=== PATIENT | female | born 1985 | race Two or more races ===

== ENCOUNTER 2017-08-21 11:38 | Inpatient (IN) | payer BC ==
[~2017-08-21] VITALS: Ht 167.6 cm; Wt 122.9 kg
--- NOTE | 2017-08-21 13:00 | NUR ---
PT CAME IN WITH PROGRESSIVE GENERALIZED WEAKNESS AND SLURRED SPEECH. WAS CURRENTLY IN ANOTHER ER. VSS. SEEN BY PA FOR EVAL. SAFETY AND COMFORT MEASURES PROVIDED. WILL MONITOR.
[2017-08-21 13:15] LABS: APPEARANCE,URINE Clear (CLEAR); BILIRUBIN,URINE Negative (NEGATIVE); BLOOD, URINE Negative Ery/uL (NEGATIVE); COLOR,URINE Yellow (YELLOW); KETONES,URINE 15 (NEGATIVE); LEUKOCYTE ESTERASE ,URINE Negative (NEGATIVE); NITRITE, URINE Negative (NEGATIVE); PH,URINE 7.5 (5.0-8.0); PROTEIN,URINE Negative (NEGATIVE); UGLUCOSE Negative (NEGATIVE); UROBILINOGEN,URINE 0.2 EU/dL (0.2)
[2017-08-21 13:18] LABS: BASOPHILS # (AUTO) 0.1 /CMM (0.0-0.2); BASOPHILS % (AUTO) 0.5 % (0.0-2.0); EOSINOPHILS % (AUTO) 0.1 % (0.0-6.0); HEMATOCRIT 37 % (33-45); HEMOGLOBIN 12.4 g/dL (11.5-14.8); LYMPHOCYTES # (AUTO) 1.6 /CMM (0.8-4.8); LYMPHOCYTES % (AUTO) 16.2 % (20.0-44.0); MEAN CORPUSCULAR HEMOGLOBIN 30 PG (26.0-33.0); MEAN CORPUSCULAR HGB CONC 34 g/dl (31.0-36.0); MEAN CORPUSCULAR VOLUME 89 fL (82-100); MONOCYTES # (AUTO) 0.4 /CMM (0.1-1.30); MONOCYTES % (AUTO) 4.4 % (2.0-12.0); NEUTROPHILS # (AUTO) 7.8 /CMM (1.8-8.9); NEUTROPHILS % (AUTO) 78.8 % (43.0-81.0); PLATELET COUNT (AUTO) 281 /CMM (150-450); RDW COEFFICIENT OF VARIATION 14.9 (11.5-15.0); RED BLOOD CELL COUNT(AUTO) 4.18 MIL/uL (4.0-5.2); WHITE BLOOD COUNT (AUTO) 9.9 K/uL (4.3-11.0)
[2017-08-21 13:30] LABS: ALBUMIN 3.8 g/dL (3.4-5.0); BILIRUBIN,DIRECT 0.1 mg/dL (0.0-0.2); BILIRUBIN,TOTAL 0.5 mg/dL (0.2-1.0); CALCIUM, SERUM 9.1 mg/dL (8.5-10.1); CREATININE 0.9 mg/dL (0.6-1.3); POTASSIUM 5.2 mmol/L (3.5-5.1); TOTAL PROTEIN, SERUM 8.1 g/dL (6.4-8.2)
--- NOTE | 2017-08-21 13:40 | NUR ---
IV ACCESS STARTED. BLOOD DRAWN FOR LABS.
--- NOTE | 2017-08-21 13:49 | NUR ---
CALLED DR. RAZA, LEFT MESSAGE ON VOICEMAIL Addendum: 08/21/17 at 1433 by SARA 'S OFFICE: [phone]
--- NOTE | 2017-08-21 14:21 | NUR ---
RECALLED , LEFT MESSAGE ON VOICEMAIL
--- NOTE | 2017-08-21 14:42 | NUR ---
CALLED NURSING SUP. TO INFORM HER THAT IS NOT RESPONDING, SHE INFORMED ME IS ON VACATION AND TO CALL INSTEAD.
--- NOTE | 2017-08-21 14:45 | NUR ---
CALLED AT , NO ANSWER, LEFT MESSAGE ON VOICEMAIL
--- NOTE | 2017-08-21 14:47 | NUR ---
RECEIVED CALL FROM NURSING SUP. QUEVEDO THAT SHE GOT IN TOUCH WITH AND HE INFORMED HER THAT IS BACK FROM VACATION OF YESTERDAY AND THAT HE IS NOT COVERING HER.
--- NOTE | 2017-08-21 14:53 | NUR ---
JOSE PAGED, DONG ESTEVEZ QUALITY INTERN BOOKKEEPERS SUPERVISOR
--- NOTE | 2017-08-21 14:56 | NUR ---
RECEIVED CALL FROM NURSING SUP. QUEVEDO THAT SHE TEXTED ON HER CELL PHONE.
--- NOTE | 2017-08-21 15:30 | NUR ---
OB SCRUB TECH AT BEDSIDE.
--- NOTE | 2017-08-21 15:40 | NUR ---
TELE 321-1 NARISSA FOR ATAXIA, DONG ESTEVEZ NP ADMITTING
--- NOTE | 2017-08-21 15:47 | NUR ---
REPORT GIVEN TO TERRENCE DICKERSON FOR 321-1.
[2017-08-21] MEDS ORDERED: ONDANSETRON HCL/PF 4 MG/2 ML VIAL IVP PRN (16:00)
[2017-08-21] MEDS ORDERED: MECLIZINE HCL 12.5 MG TABLET PO PRN (16:00)
[2017-08-21] MEDS ORDERED: DEXTROSE 50%-WATER 50 ML DISP.SYRIN IV PRN (16:00)
[2017-08-21] MEDS ORDERED: ACETAMINOPHEN 325 MG TABLET PO PRN (16:00)
[2017-08-21] MEDS ORDERED: MAGNESIUM HYDROXIDE 30 ML UDC PO PRN (16:00)
[2017-08-21] MEDS ORDERED: Z GUARD REMEDY 2 OZ OINT TP PRN (16:00)
--- NOTE | 2017-08-21 16:21 | NUR ---
TEXTED DR. CARDOZO FOR MRI APPROVAL.
--- NOTE | 2017-08-21 16:22 | NUR ---
DR. CARDOZO TEXTED BACK.ON HOLD FOR NOW HE WILL LET US KNOW.
[2017-08-21] MEDS: DOCUSATE SODIUM 100 MG CAPSULE PO SCH (17:00)
[2017-08-21] MEDS: BLOOD SUGAR DIAGNOSTIC 1 EACH STRIP IN SCH ×2 (17:31→21:07)
[2017-08-21] MEDS: IV NS 0.9% 1,000 ML IV PRN (17:32)
--- NOTE | 2017-08-21 18:00 | NUR ---
Tele/RN - Admission Patient awake, A/O x 4, denies chest pain, no evidence of resp. distress, tolerating room air, speech clear, c/o weakness and dizziness. Patient admitted for Dizziness r/o stroke vs syncope vs vertigo under Shannan Foster NP. Tele shows SR. Skin is intact, refused photo to be taken. All belongings verified and secured in the unit. Patient oriented to the unit and use of call light. All needs attended and met. Patient and mother educated on the treatment plan. Admission orders noted and implemented. Fall and aspiration precautions initiated. Will continue to monitor closely.
[2017-08-21 20:00] VITALS: BP 129/87
[2017-08-21] MEDS: ATORVASTATIN 10 MG TABLET PO SCH (21:07)
[2017-08-22 00:35] VITALS: BP 145/79
[2017-08-22 04:00] VITALS: BP 131/71
[2017-08-22] MEDS: BLOOD SUGAR DIAGNOSTIC 1 EACH STRIP IN SCH ×4 (06:04→22:01)
--- NOTE | 2017-08-22 06:11 | NUR ---
MANAGER GENERATION NOTES AWAKE & RESPONSIVE. NOT IN ANY DISTRESS. NO SOB NOTED. DENIES ANY PAIN OR DISCOMFORT AT THIS TIME. ON TELE SR @ 93 WITH IV-HL PATENT & INTACT. MONITORED ACCORDINGLY. CALL LIGHT WITHIN REACH. BED IN LOWEST POSITION. SR UP X 2 FOR SAFETY. WILL ENDORSE TO NEXT SHIFT.
[2017-08-22 06:25] LABS: ALBUMIN 3.2 g/dL (3.4-5.0); BILIRUBIN,TOTAL 0.4 mg/dL (0.2-1.0); CALCIUM, SERUM 8.5 mg/dL (8.5-10.1); CREATININE 1.1 mg/dL (0.6-1.3); MAGNESIUM 1.9 mg/dL (1.8-2.4); PHOSPHORUS 3.1 mg/dL (2.5-4.9); POTASSIUM 3.6 mmol/L (3.5-5.1); TOTAL PROTEIN, SERUM 6.8 g/dL (6.4-8.2)
[2017-08-22 06:35] LABS: BASOPHILS % (AUTO) 0.4 % (0.0-2.0); EOSINOPHILS % (AUTO) 1.6 % (0.0-6.0); HEMATOCRIT 35 % (33-45); HEMOGLOBIN 11.6 g/dL (11.5-14.8); LYMPHOCYTES # (AUTO) 2.5 /CMM (0.8-4.8); MEAN CORPUSCULAR HEMOGLOBIN 30 PG (26.0-33.0); MEAN CORPUSCULAR HGB CONC 33 g/dl (31.0-36.0); MEAN CORPUSCULAR VOLUME 90 fL (82-100); MONOCYTES # (AUTO) 0.6 /CMM (0.1-1.30); MONOCYTES % (AUTO) 7.5 % (2.0-12.0); NEUTROPHILS % (AUTO) 60.5 % (43.0-81.0); PLATELET COUNT (AUTO) 217 /CMM (150-450); RDW COEFFICIENT OF VARIATION 14.7 (11.5-15.0); RED BLOOD CELL COUNT(AUTO) 3.93 MIL/uL (4.0-5.2); WHITE BLOOD COUNT (AUTO) 8.3 K/uL (4.3-11.0)
[2017-08-22 06:59] LABS: THYROID STIMULATING HORMONE 2.312 uIU/mL (0.358-3.74)
[2017-08-22 07:04] LABS: IRON, SERUM 91 ug/dl (50-175); TOTAL IRON BINDING CAPACITY 314 ug/dl (250-450)
--- NOTE | 2017-08-22 07:15 | NUR ---
RN NOTES PT IS LAYING DOWN IN BED, SLEEPING COMFORTABLY. PT ON RA, RESPIRATIONS ARE EVEN AND UNLABORED. IV ON L HAND, INTACT AND RUNNING NS @75ML/HR. NO SIGNS OF DISTRESS NOTED. SAFETY MEASURES ARE IN PLACE, CALL LIGHT IS IN REACH. WILL CONTINUE TO MONITOR.
[2017-08-22 08:00] VITALS: BP 111/63
[2017-08-22] MEDS: DOCUSATE SODIUM 100 MG CAPSULE PO SCH ×2 (08:15→17:44)
[2017-08-22] MEDS: PANTOPRAZOLE 40 MG TABLET.DR PO SCH (08:15)
[2017-08-22] MEDS: ASPIRIN 81 MG TAB.CHEW PO SCH (08:15)
[2017-08-22] MEDS: Thiamine 100 MG in IV D5W 50 ML IV SCH (12:42)
[2017-08-22 16:00] VITALS: BP 114/69
[2017-08-22] MEDS ORDERED: GADODIAMIDE 5 MMOL/10 ML VIAL IJ ONE (16:53)
--- NOTE | 2017-08-22 18:45 | NUR ---
RN NOTES PT IS SITTING UP IN BED, RESTING COMFORTABLY WITH FAMILY AT BEDSIDE. PT ON RA, RESPIRATIONS ARE EVEN AND UNLABORED. IV ON L HAND INTACT AND RUNNING NS @ 75ML/HR. ALL MEDS WERE GIVEN ORDERED AND PT NEEDS MET. 1730 ACCUCHECK 96, NO INSULIN COVERAGE NEEDED. NO SIGNS OF DISTRESS NOTED. SAFETY MEASURES ARE IN PLACE, CALL LIGHT IS IN REACH. WILL ENDORSE TO BARREL REPAIRER RN FOR CONTINUITY OF CARE.
--- NOTE | 2017-08-22 19:30 | NUR ---
TELE/RN RECEIVE PATIENT AWAKE, ALERT, ORIENTED, COMFORTABLE, NO C/O PAIN, NO DISTRESS NOTED, CALL LIGHT IN REACH. FALL PRECAUTION PER PROTOCOL IN PLACE, INSTRUCTED PATIENT TO CALL/USE CALL LIGHT FOR ASSISTANCE TO PREVENT FALL. VERBALIZED UNDERSTANDING. WILL MONITOR.
--- NOTE | 2017-08-22 19:30 | NUR ---
KODAK/JAYLA JUAREZ FROM [facility] CALLED RE: NM SCAN, INFORMED ANN THAT THERE IS NO CONSENT YET FOR THE TEST, PER DAY SHIFT RN, DOES NOT WANT TO GIVE CONSENT BY PHONE AND THAT WILL COME. PER ANN HE WILL DO THE TEST IN A.M. Addendum: 08/22/17 at 2046 by DEANDRA CHEN RN PLEASE DISREGARD ABOVE DOCUMENTATION, CHARTED ON THE WRONG PATIENT.
[2017-08-22 20:00] VITALS: BP 132/61
[2017-08-22] MEDS: ATORVASTATIN 10 MG TABLET PO SCH (22:01)
--- NOTE | 2017-08-22 23:00 | NUR ---
TELE/RN PATIENT IS SLEEPING AT THIS TIME, AROUSABLE, APPEAR COMFORTABLE, NO SIGNS OF DISTRESS NOTED, CALL LIGHT IN REACH, WILL CONTINUE TO MONITOR.
[2017-08-23] VITALS: BP 128/77
--- NOTE | 2017-08-23 | NUR ---
TELE/RN PATIENT IS SLEEPING AT THIS TIME, AROUSABLE, APPEAR COMFORTABLE, NO SIGNS OF DISTRESS NOTED, CALL LIGHT IN REACH. WILL CONTINUE TO MONITOR.
[2017-08-23] MEDS: IV NS 0.9% 1,000 ML IV PRN ×2 (01:11→20:35)
[2017-08-23 04:00] VITALS: BP 137/44
--- NOTE | 2017-08-23 06:23 | NUR ---
MS/RN PATIENT IS AWAKE, ALERT, ORIENTED, COMFORTABLE, NO C/O PAIN, NO C/O DIZZINESS, ALL NEEDS ATTENDED AT THIS TIME. WILL CONTINUE TO MONITOR.
[2017-08-23] MEDS: BLOOD SUGAR DIAGNOSTIC 1 EACH STRIP IN SCH ×4 (06:32→22:02)
--- NOTE | 2017-08-23 07:15 | NUR ---
RN NOTES PATIENT A/OX3, STILL NOTED WITH SLURRED SPEECH, PATIENT BREATHING EVEN AND UNLABORED, NO SOB NOTED, DENIES PAIN OR DISCOMFORT AT THIS TIME. KEPT PATIENT COMFORTABLE, NEEDS ATTENDED AND MET, CALL LIGHT WITHIN REACH, WILL CONTINUE TO MONITOR.
[2017-08-23] MEDS: DOCUSATE SODIUM 100 MG CAPSULE PO SCH ×2 (08:14→17:00)
[2017-08-23] MEDS: ASPIRIN 81 MG TAB.CHEW PO SCH (08:15)
[2017-08-23] MEDS: PANTOPRAZOLE 40 MG TABLET.DR PO SCH (08:15)
[2017-08-23 08:16] VITALS: BP 121/77
[2017-08-23] MEDS: Thiamine 100 MG in IV D5W 50 ML IV SCH (08:34)
[2017-08-23 09:44] LABS: CALCIUM, SERUM 8.5 mg/dL (8.5-10.1); POTASSIUM 3.7 mmol/L (3.5-5.1)
[2017-08-23] MEDS ORDERED: CT SWABBABLE VALVE TRANS SET 1 EA INFUS.SET MC ONE (14:57)
[2017-08-23] MEDS ORDERED: IV NS 0.9% 250 ML IV ONE (14:57)
[2017-08-23] MEDS ORDERED: IOHEXOL-300 100 ML VIAL IV ONE (14:57)
--- NOTE | 2017-08-23 17:38 | NUR ---
RN NOTES PATIENT IN BED, IN SUPINE POSITION, PATIENT CAME BACK FROM LUMBAR PUNCTURE AND WAS INSTRUCTED BY RADIOLOGY TECHNICIANS TO KEEP PATIENT IN SUPINE POSITION FOR FOUR TO SIX HOURS, TO KEEP PRESSURE AND PREVENT BLEEDING ON THE SITE. PATIENT'S PM MEDICATION AND DINNER HELD AT THIS TIME, BECAUSE PATIENT CANNOT BE SEATED UPRIGHT, AND MAY CAUSE ASPIRATION. PATIENT VERBALIZED UNDERSTANDING, AND PATIENT DID STATE DURING LUNCH TIME SHE HAS INCREASED DIFFICULTY SWALLOWING THE FOOD. PATIENT'S IVF ONGOING AT THIS TIME. KEPT PATIENT COMFORTABLE, WILL CONTINUE TO MONITOR. Addendum: 08/23/17 at 1753 by JENIFER ANDINO RN ADDENDUM: PATIENT MUST LIE DOWN FOR FOUR TO SIX HOURS TO REDUCE SPINAL HEADACHE. Addendum: 08/23/17 at 1757 by JENIFER ANDINO RN ADDENDUM: CSF COLLECTED ON 4 CONTAINERS WITH A TOTAL VOLUME OF 10CC, SENT TO LAB FOR TESTING.
[2017-08-23 18:25] LABS: CSF GLUCOSE 63 mg/dL (40-70); CSF PROTEIN 28.1 mg/dL (15-45)
--- NOTE | 2017-08-23 18:53 | NUR ---
RN NOTES PATIENT A/OX3, BREATHING EVEN AND UNLABORED, NO SOB NOTED, PATIENT DENIES PAIN OR DISCOMFORT AT THIS TIME, KEPT PATIENT IN SUPINE POSITION, MOM AND FRIEND AT BEDSIDE, HELD DINNER AT THIS TIME, NEEDS ATTENDED AND MET, CALL LIGHT WITHIN REACH, WILL ENDORSE TO LIBRARY CIRCULATION DEPARTMENT CHIEF FOR [place].
[2017-08-23 20:00] VITALS: BP 113/68
--- NOTE | 2017-08-23 20:00 | NUR ---
MS/R RECEIVE PATIENT AWAKE, ALERT, ORIENTED, COMFORTABLE, NO C/O PAIN, NO DISTRESS NOTED, PATIENT IS S/P LUMBAR PUNCTURE, NEEDS TO BE ON SUPINE POSITION UNTIL 23:00, PATIENT IS AWARE. WILL MONITOR.
[2017-08-23] MEDS: ATORVASTATIN 10 MG TABLET PO SCH (23:05)
--- NOTE | 2017-08-24 06:32 | NUR ---
MS/RN SLEEPING, AROUSABLE, APPEAR COMFORTABLE, NO SIGNS OF DISTRESS NOTED, ALL NEEDS ATTENDED AT THIS TIME. WILL CONTINUE TO MONITOR.
[2017-08-24] MEDS: BLOOD SUGAR DIAGNOSTIC 1 EACH STRIP IN SCH ×4 (07:04→22:13)
[2017-08-24 07:16] LABS: CALCIUM, SERUM 8.2 mg/dL (8.5-10.1); CREATININE 0.9 mg/dL (0.6-1.3); MAGNESIUM 1.8 mg/dL (1.8-2.4); PHOSPHORUS 2.8 mg/dL (2.5-4.9); POTASSIUM 3.7 mmol/L (3.5-5.1)
[2017-08-24 08:00] VITALS: BP 128/66
--- NOTE | 2017-08-24 08:00 | NUR ---
received pt. alert and oriented x4,iv infusing.dr. sherman in and spoke with pt.
[2017-08-24] MEDS: DOCUSATE SODIUM 100 MG CAPSULE PO SCH ×2 (09:22→17:47)
[2017-08-24] MEDS: THIAMINE HCL 100 MG TABLET PO SCH (09:24)
[2017-08-24] MEDS: PANTOPRAZOLE 40 MG TABLET.DR PO SCH (09:24)
[2017-08-24] MEDS: ASPIRIN 81 MG TAB.CHEW PO SCH (09:24)
--- NOTE | 2017-08-24 10:00 | NUR ---
GIO ON FLOOR-INFORMED HER OF LT. SIDED SEVERE WEAKNESS. STATES SHE IS AWARE OF THIS IN TO SEE PT.STATES NO NEED FOR ADDITIONAL CAT SCAN.MOM IN ROOM WITH PT. Addendum: 08/24/17 at 1904 by WANDA BASHIR RN above note incorrect time.
--- NOTE | 2017-08-24 10:00 | NUR ---
pt,s mom calling out for rn.states dtr.with weakness on lt. side of body.rn in to rm.noted rt. hand grasp strong,lt. hand grasp extremely weak.rt. leg stronger than lt.report to contracts attorney.
--- NOTE | 2017-08-24 10:30 | NUR ---
PT,S [facility] CALLING OUT FOR RN-STATES DTR. WITH TROUBLE WEAKNESS LT. SIDE. RN IN TO RM. HAND GRASP STRONGER ON RT.EXTREMELY WEAK LT.RT LEG STRONGER THAN LT.REPORT TO OUTREACH TEAM MEMBER. Addendum: 08/24/17 at 1903 by WANDA BASHIR RN incorrect time
--- NOTE | 2017-08-24 10:30 | NUR ---
maria dolores dee toolmaker on floor,made aware of severe lt. sided weakness.states knowledgeable of this and in to see pt.states no need for additional cat scan.
[2017-08-24] MEDS: IV NS 0.9% 1,000 ML IV PRN (12:20)
--- NOTE | 2017-08-24 14:30 | NUR ---
pt. hooked up to cont. pulse ox machine.
[2017-08-24 16:00] VITALS: BP 135/81
--- NOTE | 2017-08-24 18:00 | NUR ---
pt. stable at this time.
--- NOTE | 2017-08-24 19:15 | NUR ---
MS RN OPENING NOTE Patient was seen lying in bed AAOx3, breathing on RA with no SOB, and no signs of acute distress. Patient's speech is slurred and left sided weakness continues; both symptoms present since admission per report. NS at 75ml/hr is running through the left hand. Bed is in the low/locked position, two side rails up, and call schmid within reach. Mother is at bedside. Patient has no immediate needs at this time. Will continue to monitor.
[2017-08-24 20:00] VITALS: BP 133/88
[2017-08-24] MEDS: ATORVASTATIN 10 MG TABLET PO SCH (22:13)
[2017-08-25] MEDS: IV NS 0.9% 1,000 ML IV PRN ×2 (01:36→17:24)
--- NOTE | 2017-08-25 05:30 | NUR ---
MS RN NOTE - IV Patient's IV in the left hand was noted to be leaking. IV fluids were put on hold temporarily until a new IV could be started. I attempted to start a new IV at two different sites with no success. Charge nurse will attempt.
--- NOTE | 2017-08-25 06:45 | NUR ---
MS RN NOTE - IV Per Charge nurse, Shakira, IV could not be started. Will get vein finder.
[2017-08-25 07:07] LABS: BASOPHILS % (AUTO) 0.3 % (0.0-2.0); EOSINOPHILS % (AUTO) 1.3 % (0.0-6.0); HEMATOCRIT 38 % (33-45); HEMOGLOBIN 12.8 g/dL (11.5-14.8); LYMPHOCYTES % (AUTO) 24.9 % (20.0-44.0); MEAN CORPUSCULAR HEMOGLOBIN 29 PG (26.0-33.0); MEAN CORPUSCULAR HGB CONC 33 g/dl (31.0-36.0); MEAN CORPUSCULAR VOLUME 88 fL (82-100); MONOCYTES # (AUTO) 0.7 /CMM (0.1-1.30); MONOCYTES % (AUTO) 8.6 % (2.0-12.0); NEUTROPHILS # (AUTO) 5.3 /CMM (1.8-8.9); NEUTROPHILS % (AUTO) 64.9 % (43.0-81.0); PLATELET COUNT (AUTO) 237 /CMM (150-450); RDW COEFFICIENT OF VARIATION 14.5 (11.5-15.0); RED BLOOD CELL COUNT(AUTO) 4.33 MIL/uL (4.0-5.2); WHITE BLOOD COUNT (AUTO) 8.2 K/uL (4.3-11.0)
[2017-08-25 07:23] LABS: CALCIUM, SERUM 8.7 mg/dL (8.5-10.1); CREATININE 0.9 mg/dL (0.6-1.3); MAGNESIUM 1.9 mg/dL (1.8-2.4); POTASSIUM 3.7 mmol/L (3.5-5.1)
--- NOTE | 2017-08-25 07:25 | NUR ---
ms rn initial notes Received patient in bed, awake, head of bed elevated, no SOB or distress noted. On room air and tolerated well, with 02 sat of 100%. IV intact and patent with IVF infusing well. Alert and oriented x 3, with slurred speech. No complaint of pain or discomfort noted. Call light with in patient reach, will continue to monitor accordingly.
--- NOTE | 2017-08-25 07:30 | NUR ---
MS RN CLOSING NOTE Patient slept well overnight with no complications or events. Patient remains in stable condition, all current needs have been met, call schmid is within reach. Patient care endorsed to day shift nurse.
[2017-08-25] MEDS: BLOOD SUGAR DIAGNOSTIC 1 EACH STRIP IN SCH ×4 (07:52→21:25)
[2017-08-25 08:00] VITALS: BP 123/72
[2017-08-25] MEDS: ASPIRIN 81 MG TAB.CHEW PO SCH (08:28)
[2017-08-25] MEDS: PANTOPRAZOLE 40 MG TABLET.DR PO SCH (08:28)
[2017-08-25] MEDS: THIAMINE HCL 100 MG TABLET PO SCH (08:28)
[2017-08-25] MEDS: DOCUSATE SODIUM 100 MG CAPSULE PO SCH ×2 (08:28→17:28)
[2017-08-25 16:00] VITALS: BP 109/71
[2017-08-25] MEDS: methylPREDNISolone SOD SUCC 1,000 MG in IV NS 0.9% 250 ML IV SCH (18:27)
--- NOTE | 2017-08-25 19:04 | NUR ---
ms rn closing notes All needs provided, attended, and anticipated. Patient is in stable condition. Endorsed to next shift RN to continue care. Theo light with in patient reach.
--- NOTE | 2017-08-25 19:10 | NUR ---
MS RN OPENING NOTE Patient was seen in high-kirkland's position in bed AAOx3, breathing on RA with no SOB, and no signs of acute distress. Patient continues to have slurred speech and left sided weakness. NS at 75ml/hr is running through the left hand IV. Bed is in the low/locked position, two side rails up, and call schmid within reach. Mother is at bedside. Patient's recent use of diet/weight loss pill was brought up by patient and discussed; education regarding healthy wellbeing, eating, and exercise habits were addressed. Neither patient nor mother have any immediate needs/concerns at this time. Will continue to monitor.
[2017-08-25 20:00] VITALS: BP 148/72
[2017-08-25] MEDS: ATORVASTATIN 10 MG TABLET PO SCH (21:25)
[2017-08-25 21:32] VITALS: BP 148/72
--- NOTE | 2017-08-26 07:02 | NUR ---
MS RN CLOSING NOTE Patient is AAOx3, breathing on RA with no SOB, and no signs of acute distress. Patient slept poorly overnight, but had no complications or events. Patient remains in stable condition. Bed is low/locked, two side rails up, call schmid within reach. Patient has no immediate needs at this time. Patient care endorsed to day shift nurse.
[2017-08-26] MEDS: BLOOD SUGAR DIAGNOSTIC 1 EACH STRIP IN SCH ×4 (07:46→22:16)
[2017-08-26 08:00] VITALS: BP 119/63
--- NOTE | 2017-08-26 08:00 | NUR ---
rn notes received patient in the bed a/o x4. infusing ns at 75 ml/hr intact, patient refused pain at this jaya, no acute respiratory distress, v/s stable. patient has a left sided weakness, and also slurred speech, patient aspiration precaution, assist eating, assist turn and reposition q 2 hr. call light within to reach. dr argueta with the patient.
[2017-08-26] MEDS: DOCUSATE SODIUM 100 MG CAPSULE PO SCH ×2 (08:36→17:40)
[2017-08-26] MEDS: PANTOPRAZOLE 40 MG TABLET.DR PO SCH (08:36)
[2017-08-26] MEDS: ASPIRIN 81 MG TAB.CHEW PO SCH (08:36)
[2017-08-26] MEDS: THIAMINE HCL 100 MG TABLET PO SCH (08:36)
[2017-08-26] MEDS: methylPREDNISolone SOD SUCC 1,000 MG in IV NS 0.9% 250 ML IV SCH (09:14)
[2017-08-26] MEDS: IV NS 0.9% 1,000 ML IV PRN (09:55)
--- NOTE | 2017-08-26 10:01 | NUR ---
rn notes' patient with pt at this time sitting in the chair . continued monitoring.
--- NOTE | 2017-08-26 10:15 | NUR ---
RN NOTES PATIENT SITTING IN THE CHAIR AT THIS TIME. UNABLE TO MOVE LEFT ARM. LEFT LEG SMALL MOVEMENT BUT FEELING WHEN TOUCHING. NEEDS ATTENDED AND ANTICIPATED, CALL LIGHT WITHIN TO REACH, CONTINUED MONITORING.
--- NOTE | 2017-08-26 10:45 | NUR ---
RN NOTES PATIENT BACK TO THE BED, NO C/O PAIN AT THIS TIME. INFUSING NS AT 75 ML/HR. CONTINUED MONITORING.
--- NOTE | 2017-08-26 13:00 | NUR ---
RN NOTES BS-161 MG/DL. COVERAGE GIVE, FAMILY NEXT TO THE BED. ASSIST PATIENT EATING.
[2017-08-26] MEDS: INSULIN REGULAR, HUMAN 100 UNIT/ML 3 ML VIAL SQ PRN ×3 (14:48→22:21)
[2017-08-26 16:00] VITALS: BP 114/65
--- NOTE | 2017-08-26 17:57 | NUR ---
RN NOTES ADMINISTERED MILK OF MAGNESIA 30 MG/ML PO PRN PER PATIENT REQUEST, , ENCOURAGED TO INCREASE FLUID INTAKE, CONTINUED MONITORING.
--- NOTE | 2017-08-26 18:30 | NUR ---
RN NOTES PATIENT STABLE, NO C/O PAIN AT THIS TIME, ASSIST EATING, SCHEDULED MEDICATION ADMINISTERED, V/S STABLE, INFUSING NS AT 75 ML/HR INTACT. OE=297 MG/DL, COVERAGE GIVEN. ASSIST TURN AND REPOSTIONQ 2 HR. ENDORSED ONCOMING NURSE FOR PLAN OF CARE
--- NOTE | 2017-08-26 19:40 | NUR ---
PT IN BED WITH MOM AT BEDSIDE. PT WITH NO DISTRESS OR COMPLAIN OF PAIN AT THIS TIME. O2 SUTURATION 96% , VS ARE STABLE. PT NEED ASSISTANCE WITH FOOD AND FLUID INTAKE . PT CANNOT MOVE LEFT HAND AND LEG DUE TO ATAXIA. SAFETY PRECAUTIONS IN PLACE, CALL LIGHT WITHIN REACH . WILL CONTINUE TO MONITOR . PT'S MEDS NEEDS TO BE CRASHED AND GIVEN WITH APPLE SAUCE.
[2017-08-26 20:00] VITALS: BP 127/71
[2017-08-26 22:00] VITALS: BP 120/78
[2017-08-26] MEDS: ATORVASTATIN 10 MG TABLET PO SCH (22:23)
[2017-08-27] MEDS: IV NS 0.9% 1,000 ML IV PRN ×2 (02:12→20:33)
[2017-08-27] MEDS: BLOOD SUGAR DIAGNOSTIC 1 EACH STRIP IN SCH ×4 (06:26→22:49)
--- NOTE | 2017-08-27 06:28 | NUR ---
PT'S BS LEVEL IS 116. INSULIN IS NOT GIVEN PER SLIDING SCALE.
--- NOTE | 2017-08-27 06:53 | NUR ---
MS RN CLOSING NOTES PT IN BED, A/O X4 . PT WITH LEFT SIDE WEAKNESS AND SLURRED SPEECH DUE TO ATAXIA. PT ON ROOM AIR WITH SATURATION 99%. PO MEDS NEED TO BE CRASHED AND GIVEN WITH APPLE SAUCE. PT WITH NO S/S OF DISTRESS AND DENIES PAIN AT THIS TIME. SAFETY PRECAUTIONS IN PLACE. BED IN LOW LOCKED POSITION, WITH SIDE RAILS X2. CALL LIGHT WITHIN REACH.WILL ENDORSE TO DAY SHIFT FOR [place].
[2017-08-27 08:00] VITALS: BP 142/78
--- NOTE | 2017-08-27 08:00 | NUR ---
RN NOTES RECEIVED PATIENT IN THE ROOM A/O X4, MORE ALERT, SPEECH MORE CLEAR, ABLE TO MOVE LEFT LEG, BUT ARM MOVING ON SHOULDER AREA. PATIENT V/S STABLE, SCHEDULED MEDICATION ADMINISTERED. NEEDS ATTENDED AND ANTICIPATED. ASSIST TRUN AND REPOSTION Q 2 HR, INFUSIN NS AT 75 ML/HR. CONTINUED MONITORING.
[2017-08-27] MEDS: DOCUSATE SODIUM 100 MG CAPSULE PO SCH ×2 (09:06→16:55)
[2017-08-27] MEDS: ASPIRIN 81 MG TAB.CHEW PO SCH (09:06)
[2017-08-27] MEDS: PANTOPRAZOLE 40 MG TABLET.DR PO SCH (09:06)
[2017-08-27] MEDS: THIAMINE HCL 100 MG TABLET PO SCH (09:06)
--- NOTE | 2017-08-27 09:50 | NUR ---
RN NOTES PATIENT SEEN BY TARIK MONIQUE, NO NEW ORDERS AT THIS TIME, CONTINUED MONITORING.
[2017-08-27] MEDS: methylPREDNISolone SOD SUCC 1,000 MG in IV NS 0.9% 250 ML IV SCH (09:54)
--- NOTE | 2017-08-27 10:05 | NUR ---
RN NOTES PATIENT WITH PT AT THIS TIME, ASSIST HER SITTING TO THE CHAIR, CALL LIGHT WITHIN TO REACH, CONTINUED MONITORING.
--- NOTE | 2017-08-27 12:00 | NUR ---
RN NOTES PATIENT BACK TO THE BED, BS-124 MG/DL, NO COVERAGE GIVEN, PATIENT EATING LUNCH, DVT PUMP ON, CALL LIGHT WITHIN TO REACH, CONTINUED MONITORING.
[2017-08-27 16:00] VITALS: BP 131/89
[2017-08-27] MEDS: INSULIN REGULAR, HUMAN 100 UNIT/ML 3 ML VIAL SQ PRN ×2 (16:59→23:02)
--- NOTE | 2017-08-27 17:00 | NUR ---
RN NOTES BS-160 MG/DL, COVERAGE GIVEN, SCHEDULED MEDICATION TAKEN, ENCOURAGED TO INCREASE FLUID INTAKE. ALSO PATIENT WITH OT, CONTINUED MONITORING.
--- NOTE | 2017-08-27 18:41 | NUR ---
RN NOTES PATIENT STABLE, NO ACUTE RESPIRATORY DISTRESS EATING AT THIS TIME. FAMILY NEXT TO THE BED. ENDORSED ONCOMING NURSE FOR PLAN OF CARE.
--- NOTE | 2017-08-27 19:20 | NUR ---
MS RN OPENING NOTES PT IN BED, A/OX 4 , VERBALLY RESPONSIVE. MOM AT BED SIDE. BREATHING UNLABORED AND EVEN , PT ON ROOM AIR . DENIES PAIN AT THIS TIME. SAFETY MEASURES IN PLACE , CALL LIGHT WITHIN REACH.WILL CONTINUE TO MONITOR
[2017-08-27 20:00] VITALS: BP 129/79
[2017-08-27] MEDS: ATORVASTATIN 10 MG TABLET PO SCH (22:00)
[2017-08-28] MEDS: BLOOD SUGAR DIAGNOSTIC 1 EACH STRIP IN SCH ×4 (07:23→21:48)
[2017-08-28] MEDS: PANTOPRAZOLE 40 MG TABLET.DR PO SCH (07:29)
--- NOTE | 2017-08-28 07:30 | NUR ---
MS RN CLOSING NOTES PT IN BED, A/OX 4 , VERBALLY RESPONSIVE.BREATHING UNLABORED AND EVEN , PT ON ROOM AIR . DENIES PAIN AT THIS TIME. SAFETY MEASURES IN PLACE , CALL LIGHT WITHIN REACH.WILL ENDORSE TO DAY SHIFT NURSE FOR [place].
--- NOTE | 2017-08-28 07:32 | NUR ---
MS RN OPENING NOTES RECEIVED PATIENT AWAKE IN BED IN NO ACUTE SIGNS OF DISTRESS. A/O X4. ABLE TO SPEAK BUT SLIGHTLY SLURRED, DENIES PAIN AT THIS TIME. PT ABLE TO MOVE SLIGHTLY HER LEFT ARM AND LEFT LEG AND STATED THAT SHE CAN MOVE IT BETTER TODAY THAN YESTERDAY. ON ROOM AIR, BREATHING EVEN AND UNLABORED. IV ACCESS ON LEFT HAND G#22 INTACT AND PATENT, IVF OF NS INFUSING AT 75ML/HR, NO S/S OF INFILTRATION NOTED. SAFETY MEASURES IN PLACE. HOB ELEVATED. BED IN LOW/LOCKED POSITION WITH SIDE-RAILS UP APPROPRIATE. CALL LIGHT IN REACH. WILL CONTINUE TO MONITOR ACCORDINGLY.
[2017-08-28 07:48] LABS: BASOPHILS % (AUTO) 0.3 % (0.0-2.0); HEMATOCRIT 38 % (33-45); HEMOGLOBIN 12.6 g/dL (11.5-14.8); LYMPHOCYTES # (AUTO) 1.6 /CMM (0.8-4.8); LYMPHOCYTES % (AUTO) 9.6 % (20.0-44.0); MEAN CORPUSCULAR HEMOGLOBIN 30 PG (26.0-33.0); MEAN CORPUSCULAR HGB CONC 33 g/dl (31.0-36.0); MEAN CORPUSCULAR VOLUME 91 fL (82-100); MONOCYTES # (AUTO) 0.8 /CMM (0.1-1.30); MONOCYTES % (AUTO) 4.8 % (2.0-12.0); NEUTROPHILS % (AUTO) 85.3 % (43.0-81.0); PLATELET COUNT (AUTO) 265 /CMM (150-450); RDW COEFFICIENT OF VARIATION 14.9 (11.5-15.0); RED BLOOD CELL COUNT(AUTO) 4.23 MIL/uL (4.0-5.2); WHITE BLOOD COUNT (AUTO) 16.4 K/uL (4.3-11.0)
[2017-08-28 08:00] VITALS: BP 148/68
[2017-08-28 08:12] LABS: CALCIUM, SERUM 8.3 mg/dL (8.5-10.1); MAGNESIUM 2.4 mg/dL (1.8-2.4); PHOSPHORUS 3.4 mg/dL (2.5-4.9); POTASSIUM 3.7 mmol/L (3.5-5.1)
[2017-08-28] MEDS: THIAMINE HCL 100 MG TABLET PO SCH (08:55)
[2017-08-28] MEDS: ASPIRIN 81 MG TAB.CHEW PO SCH (08:55)
[2017-08-28] MEDS: DOCUSATE SODIUM 100 MG CAPSULE PO SCH ×2 (08:55→17:12)
[2017-08-28] MEDS: methylPREDNISolone SOD SUCC 1,000 MG in IV NS 0.9% 250 ML IV SCH (08:56)
--- NOTE | 2017-08-28 11:57 | NUR ---
RN NOTES PATIENT NOTED WITH ELEVATED WBC 16.4 TODAY, KAYDEN MONTANEZ ON UNIT AND MADE AWARE. NO NEW ORDER MADE AT THIS TIME. WILL CONTINUE TO MONITOR
--- NOTE | 2017-08-28 13:16 | NUR ---
RN NOTES PATIENT SEEN AND EVALUATED BY ST FOR SWALLOWING. PT DIET CHANGED TO CARDIAC NECTAR THICK LIQUIDS, CHOPPED FINE. WILL CONTINUE TO MONITOR.
[2017-08-28] MEDS: IV NS 0.9% 1,000 ML IV PRN (13:48)
[2017-08-28 16:00] VITALS: BP 132/77
[2017-08-28] MEDS: INSULIN REGULAR, HUMAN 100 UNIT/ML 3 ML VIAL SQ PRN ×2 (17:12→21:57)
--- NOTE | 2017-08-28 19:32 | NUR ---
MS RN CLOSING NOTES PATIENT AWAKE AND RESTING IN BED WATCHING TV. A/O X4. ABLE TO SPEAK MORE CLEARLY NOW. ABLE TO SLIGHTLY MOVE HER LEFT ARM AND LEFT LEG AND STATED THAT SHE CAN MOVE IT BETTER TODAY THAN YESTERDAY. ON ROOM AIR, BREATHING EVEN WITH NO SOB NOTED. IV ACCESS ON LEFT HAND G#22 INTACT AND PATENT, IVF OF NS INFUSING @ 75ML/HR, NO S/S OF INFILTRATION NOTED. ALL SAFETY MEASURES IN PLACE. HOB ELEVATED. BED IN LOW/LOCKED POSITION WITH SIDE-RAILS UP APPROPRIATE. CALL LIGHT IN REACH. ALL NEEDS AND CARE ATTENDED WELL. ENDORSED TO SCHOOL OPERATIONS MANAGER NURSE FOR [place].
[2017-08-28 20:00] VITALS: BP 135/75
[2017-08-28] MEDS: ATORVASTATIN 10 MG TABLET PO SCH (21:55)
[2017-08-29] MEDS: IV NS 0.9% 1,000 ML IV PRN ×2 (02:09→17:21)
--- NOTE | 2017-08-29 06:24 | NUR ---
MS/RN PATIENT IS AWAKE, COMFORTABLE, NO C/O PAIN, NO DISTRESS NOTED, ALL NEEDS ATTENDED AT THIS TIME. WILL CONTINUE TO MONITOR.
[2017-08-29] MEDS: BLOOD SUGAR DIAGNOSTIC 1 EACH STRIP IN SCH ×4 (07:11→21:02)
--- NOTE | 2017-08-29 07:56 | NUR ---
MS RN OPENING NOTES RECEIVED PT FROM NIGHTSHIFT NURSE IN STABLE CONDITION. PT IS A/ X3. NO SOB OR ACUTE SIGNS OF DISTRESS NOTED. BREATHING IS EVEN AND UNLABORED. SHE DENIES ANY PAIN AT THIS TIME. WEAKNESS NOTED TO PT'S LEFT SIDE, HOWEVER THIS HAS IMPROVED ACCORDING TO THE PT. IV NOTED TO BE PATENT AND INTACT. PT TOLERATING NS INFUSION WELL. NO REDNESS OR SIGNS OF INFILTRATION NOTED. BED IN LOW LOCKED POSITION, SIDE RAILS UP X3, CALL LIGHT IN RIGHT SIDE AND WITHIN REACH, BED ALARM ON, WILL CONTINUE TO MONITOR
[2017-08-29] MEDS: DOCUSATE SODIUM 100 MG CAPSULE PO SCH ×2 (08:58→17:17)
[2017-08-29] MEDS: PANTOPRAZOLE 40 MG TABLET.DR PO SCH (08:58)
[2017-08-29] MEDS: ASPIRIN 81 MG TAB.CHEW PO SCH (08:58)
[2017-08-29] MEDS: methylPREDNISolone SOD SUCC 1,000 MG in IV NS 0.9% 250 ML IV SCH (09:22)
[2017-08-29] MEDS: INSULIN REGULAR, HUMAN 100 UNIT/ML 3 ML VIAL SQ PRN ×3 (12:22→21:06)
[2017-08-29 12:35] LABS: BASOPHILS # (AUTO) 0.5 /CMM (0.0-0.2); BASOPHILS % (AUTO) 3.8 % (0.0-2.0); HEMATOCRIT 41 % (33-45); HEMOGLOBIN 13.8 g/dL (11.5-14.8); LYMPHOCYTES # (AUTO) 1.6 /CMM (0.8-4.8); LYMPHOCYTES % (AUTO) 11.5 % (20.0-44.0); MEAN CORPUSCULAR HEMOGLOBIN 30 PG (26.0-33.0); MEAN CORPUSCULAR HGB CONC 34 g/dl (31.0-36.0); MEAN CORPUSCULAR VOLUME 88 fL (82-100); MONOCYTES # (AUTO) 0.7 /CMM (0.1-1.30); MONOCYTES % (AUTO) 4.6 % (2.0-12.0); NEUTROPHILS # (AUTO) 11.5 /CMM (1.8-8.9); NEUTROPHILS % (AUTO) 80.1 % (43.0-81.0); PLATELET COUNT (AUTO) 249 /CMM (150-450); RDW COEFFICIENT OF VARIATION 13.6 (11.5-15.0); RED BLOOD CELL COUNT(AUTO) 4.67 MIL/uL (4.0-5.2); WHITE BLOOD COUNT (AUTO) 14.3 K/uL (4.3-11.0)
[2017-08-29 12:58] LABS: CALCIUM, SERUM 8.6 mg/dL (8.5-10.1); CREATININE 1.1 mg/dL (0.6-1.3); POTASSIUM 3.5 mmol/L (3.5-5.1)
[2017-08-29 16:00] VITALS: BP 139/70
--- NOTE | 2017-08-29 18:51 | NUR ---
MS RN OPENING NOTES PT REMAINS STABLE. NO ACUTE CHANGES IN CONDITION THROUGHOUT SHIFT. ALL NEEDS ANTICIPATED FOR AND MET. ALL DUE MEDS GIVEN. SHE DENIES ANY PAIN OR NEW ONSET OF WEAKNESS HOWEVER LEFT UPPER AND LOWER EXTREMITIES STILL REMAIN WEAK. SAFETY MEASURES REMAIN IN PLACE. WILL ENDORSE TO NIGHTSHIFT NURSE FOR [place]
--- NOTE | 2017-08-29 19:00 | NUR ---
MS RN OPENING NOTE RECEIVE PATIENT AWAKE IN BED, A/O X3, STABLE NO FACIAL GRIMACING NOTED FOR PAIN. NO SOB OR DISTRESS NOTED, CALL LIGHT WITHIN REACH. SAFETY MEASURES IMPLEMENTED. WILL CONTINUE TO MONITOR THROUGHOUT SHIFT.
[2017-08-29 20:00] VITALS: BP 120/78
[2017-08-29] MEDS: ATORVASTATIN 10 MG TABLET PO SCH (21:03)
[2017-08-30] MEDS: BLOOD SUGAR DIAGNOSTIC 1 EACH STRIP IN SCH ×2 (05:38→11:48)
[2017-08-30] MEDS: INSULIN REGULAR, HUMAN 100 UNIT/ML 3 ML VIAL SQ PRN (05:42)
--- NOTE | 2017-08-30 06:23 | NUR ---
MS RN CLOSING NOTES PT COMFORTABLY ASLEEP AND EASILY AWAKEN, TOLERATING ROOM AIR 98%, ASSISTED REPOSITION EVERY 2 HOURS, RESPIRATION EVEN AND UNLABORED. KEPT CLEAN AND DRY AND COMFORTABLE, ALL NURSING CARE RENDERED. NEEDS ATTENDED AND ANTICIPATED, GOOD SKIN CARE PROVIDED. ON LOW BED AT ALL TIMES TO ENSURE SAFETY. SAFE HAZARD FREE ENVIRONMENT PROVIDED. CALL LIGHT WITHIN EASY TO REACH. WILL ENDORSE NEXT SHIFT CONTINUITY OF CARE.
[2017-08-30] MEDS: IV NS 0.9% 1,000 ML IV PRN (06:38)
--- NOTE | 2017-08-30 07:57 | NUR ---
MS RN OPENING NOTES RECEIVED PT FROM NIGHTSHIFT NURSE IN STABLE CONDITION. PT IS A/ X3. NO SOB OR ACUTE SIGNS OF DISTRESS NOTED. BREATHING IS EVEN AND UNLABORED. SHE DENIES ANY PAIN AT THIS TIME. IV TO LEFT HAND NOTED TO BE PATENT AND INTACT. PT TOLERATING NS INFUSION WELL. NO REDNESS OR SIGNS OF INFILTRATION NOTED. BED IN LOW LOCKED POSITION, SIDE RAILS UP X3, CALL LIGHT IN RIGHT SIDE AND WITHIN REACH, BED ALARM ON, PT'S MOTHER AT BEDSIDE. WILL CONTINUE TO MONITOR
[2017-08-30 08:00] VITALS: BP 139/87
[2017-08-30 08:26] LABS: BASOPHILS # (AUTO) 0.4 /CMM (0.0-0.2); BASOPHILS % (AUTO) 3.2 % (0.0-2.0); EOSINOPHILS % (AUTO) 0.1 % (0.0-6.0); HEMATOCRIT 38 % (33-45); HEMOGLOBIN 12.9 g/dL (11.5-14.8); LYMPHOCYTES % (AUTO) 15.3 % (20.0-44.0); MEAN CORPUSCULAR HEMOGLOBIN 30 PG (26.0-33.0); MEAN CORPUSCULAR HGB CONC 34 g/dl (31.0-36.0); MEAN CORPUSCULAR VOLUME 87 fL (82-100); MONOCYTES # (AUTO) 0.7 /CMM (0.1-1.30); MONOCYTES % (AUTO) 5.6 % (2.0-12.0); NEUTROPHILS # (AUTO) 10.2 /CMM (1.8-8.9); NEUTROPHILS % (AUTO) 75.8 % (43.0-81.0); PLATELET COUNT (AUTO) 230 /CMM (150-450); RDW COEFFICIENT OF VARIATION 13.4 (11.5-15.0); RED BLOOD CELL COUNT(AUTO) 4.35 MIL/uL (4.0-5.2); WHITE BLOOD COUNT (AUTO) 13.3 K/uL (4.3-11.0)
[2017-08-30 08:52] LABS: CALCIUM, SERUM 8.3 mg/dL (8.5-10.1); CREATININE 0.9 mg/dL (0.6-1.3); MAGNESIUM 2.4 mg/dL (1.8-2.4); PHOSPHORUS 3.2 mg/dL (2.5-4.9); POTASSIUM 3.5 mmol/L (3.5-5.1)
[2017-08-30] MEDS: ASPIRIN 81 MG TAB.CHEW PO SCH (09:00)
[2017-08-30] MEDS: DOCUSATE SODIUM 100 MG CAPSULE PO SCH (09:01)
[2017-08-30] MEDS: PANTOPRAZOLE 40 MG TABLET.DR PO SCH (09:01)
[2017-08-30] MEDS ORDERED: DOCU-141 PO (11:37)
[2017-08-30] MEDS ORDERED: ASPI-1169 PO (11:37)
[2017-08-30] MEDS ORDERED: ATOR10TA PO (11:37)
[2017-08-30] MEDS ORDERED: PRED50TA PO (11:37)
--- NOTE | 2017-08-30 14:59 | NUR ---
MS RIDDLER OPERATOR NOTES PT WAS DISCHARGED FROM FACILITY IN STABLE CONDITION. ALL NEEDS WERE MET DURING SHIFT AND ORDERS CARRIED OUT ACCORDINGLY. ALL DUE MEDS GIVEN. IV WAS SUCCESSFULLY REMOVED WITH CATHETER TIP INTACT. BELONGINGS VERIFIED PRIOR TO DISCHARGE; INVENTORY FORM SIGNED BY PT AND COPY PLACED IN PT'S CHART. DISCHARGE INSTRUCTIONS AND EDUCATION PROVIDED UTILIZING [employer]S. PT. VERBALIZED FULL UNDERSTANDING OF INSTRUCTIONS AND SIGNS D/C PAPERWORK. COPIES MADE AND PLACED IN PT'S CHART. REPORT CALLED AND GIVEN TO MILY THE RECEIVING NURSE AT [facility]. PT WAS SAFELY TRANSFERRED FROM HOSPITAL BED TO [facility] AND LEFT VIA AMBULANCE TRANSPORT
== END 2017-08-30 15:10 | DRG 917 ==
LOC: ER 11:41 → TELE 15:55 → MED 16:31 → TELE 16:40 → MED 08-23 06:09
PROVIDERS: ADMIT Registered Nurse; ATTEND Registered Nurse
PROC: 009U3ZX Drainage of Spinal Canal, Percutaneous Approach, Diagnostic (ICD-10-PCS; principal; 2017-08-23)
PROC: B01BZZZ Fluoroscopy of Spinal Cord (ICD-10-PCS; principal; 2017-08-23)
DX: T65.891A Toxic effect of other specified substances, accidental (unintentional), initial encounter (principal); G04.81 Other encephalitis and encephalomyelitis; G37.2 Central pontine myelinolysis; D68.59 Other primary thrombophilia; Z68.41 Body mass index [BMI] 40.0-44.9, adult; E86.0 Dehydration; I10 Essential (primary) hypertension; E66.01 Morbid (severe) obesity due to excess calories; F41.9 Anxiety disorder, unspecified; Y92.89 Other specified places as the place of occurrence of the external cause; R47.1 Dysarthria and anarthria; R27.0 Ataxia, unspecified; E28.2 Polycystic ovarian syndrome; R53.1 Weakness
CPT/HCPCS: 36415; 62270; 70450-TC; 70551-TC; 70552-TC; 71045-TC; 71270-TC; 74178; 76856-TC; 80048-TC; 80053-TC; 80061-TC; 80076-TC; 81000-TC; 82962-TC; 83540-TC; 83735-TC; 84100-TC; 84157; 84166; 84425; 84439-TC; 84443-TC; 84703-TC; 85025-TC; 85652-TC; 85730-TC; 86140-TC; 87081-TC; 87086-TC; 89051-TC; 92507-TC; 92521; 92526; 92611-TC; 93307-TC; 93880-TC; 97110-TC; 97112-TC; 97116-TC; 97530-TC; 97535-TC; A4606; J1815; J2930; J3411; J7030; J7050; J7060; J8597; Q9967; Z7610

== ENCOUNTER 2020-11-29 12:55 | Inpatient (IN) | payer BC, OTHER ==
[~2020-11-29] VITALS: Ht 162.6 cm; Wt 124.7 kg
[~2020-11-29 12:55] MED LIST: ASPI-1169 PO; ATOR10TA PO; DOCU-141 PO; PRED50TA PO
--- NOTE | 2020-11-29 13:04 | NUR ---
DR MARTI AT THE BEDSIDE
--- NOTE | 2020-11-29 13:08 | NUR ---
BIB RA 78 FROM HOME,C/O ABDOMINAL PAIN AND VOMITING SINCE THIS MORNING. THE PATIENT RATES ABDOMINAL PAIN 5/10. C/O NAUSEA AT THIS TIME. ABDOMEN SOFT AND NON-DISTENDED. RESPIRATION REGULAR AND UNLABORED. ATTACHED TO THE MONITOR. WARM BLANKET PROVIDED FOR COMFORT. WILL CONTINUE TO MONITOR THE PATIENT.
[2020-11-29] MEDS ORDERED: ONDANSETRON HCL/PF 4 MG/2 ML VIAL IVP ONE (13:30)
[2020-11-29] MEDS ORDERED: IV NS 0.9% 1,000 ML BAG IV ONE (13:30)
--- NOTE | 2020-11-29 13:30 | NUR ---
MOVE SHEET SUBMITTED
[2020-11-29] MEDS ORDERED: DULO60CA64 PO (13:34)
--- NOTE | 2020-11-29 13:35 | NUR ---
BLOOD SPECIMEN COLLECTED AND SENT TO THE LAB
[2020-11-29] MEDS ORDERED: ONDANSETRON HCL/PF 4 MG/2 ML VIAL ONE ×2 (13:37→14:52)
--- NOTE | 2020-11-29 13:40 | NUR ---
URINE IS COLLECTED AND SENT TO THE LAB
[2020-11-29 13:41] LABS: BASOPHILS # (AUTO) 0.1 K/uL (0.0-0.2); BASOPHILS % (AUTO) 0.7 % (0.0-2.0); EOSINOPHILS % (AUTO) 0.1 % (0.0-6.0); HEMATOCRIT 32 % (33-45); HEMOGLOBIN 9.4 g/dL (11.5-14.8); LYMPHOCYTES # (AUTO) 1.8 K/uL (0.8-4.8); LYMPHOCYTES % (AUTO) 15.5 % (20.0-44.0); MEAN CORPUSCULAR HGB CONC 30 g/dl (31.0-36.0); MEAN CORPUSCULAR VOLUME 69 fL (82-100); MONOCYTES # (AUTO) 0.7 K/uL (0.1-1.30); MONOCYTES % (AUTO) 5.9 % (2.0-12.0); NEUTROPHILS # (AUTO) 9.2 K/uL (1.8-8.9); NEUTROPHILS % (AUTO) 77.8 % (43.0-81.0); PLATELET COUNT (AUTO) 327 K/uL (150-450); RED BLOOD CELL COUNT(AUTO) 4.57 MIL/uL (4.0-5.2); WHITE BLOOD COUNT (AUTO) 11.9 K/uL (4.3-11.0)
[2020-11-29 13:49] LABS: CALCIUM, SERUM 9.1 mg/dL (8.5-10.1); CARBON DIOXIDE 23 mmol/L (21-32); CHLORIDE 104 mmol/L (98-107); GLUCOSE 124 mg/dL (74-106); POTASSIUM 3.7 mmol/L (3.5-5.1); SODIUM SERUM 139 mmol/L (136-145); UREA NITROGEN, BLOOD 7 mg/dL (7-18)
--- NOTE | 2020-11-29 13:53 | NUR ---
COVID SWAB DONE AND SENT TO THE LAB
[2020-11-29 13:55] LABS: ALANINE AMINOTRANSFERASE 18 U/L (12-78); ALKALINE PHOSPHATASE 83 U/L (46-116); ASPARTATE AMINOTRANSFERASE 18 U/L (15-37); BILIRUBIN,DIRECT 0.1 mg/dL (0.0-0.2); BILIRUBIN,TOTAL 0.3 mg/dL (0.2-1.0); LIPASE 89 U/L (73-393); TOTAL PROTEIN, SERUM 7.9 g/dL (6.4-8.2)
[2020-11-29 14:03] LABS: BILIRUBIN,URINE SMALL (NEGATIVE); COLOR,URINE YELLOW (YELLOW); LEUKOCYTE ESTERASE ,URINE Negative (NEGATIVE); NITRITE, URINE Negative (NEGATIVE); PH,URINE 8.5 (5.0-8.0); PROTEIN,URINE 100 mg/dl (NEGATIVE); UGLUCOSE Negative (NEGATIVE)
[2020-11-29 14:11] LABS: BACTERIA,URINE Few /HPF (None Seen); RBC,URINE NONE SEEN /HPF (0-2); SQUAMOUS EPITHELIAL CELL,UR Few /HPF (None Seen); WBC,URINE NONE SEEN /HPF (0-3)
[2020-11-29 14:12] LABS: MUCUS,URINE Few /LPF (None Seen); URINE AMORPHOUS PHOSPHATES Moderate /HPF (None Seen)
[2020-11-29] MEDS ORDERED: LORAZEPAM INJ 2 MG/ML VIAL IV PRN (14:30)
[2020-11-29] MEDS ORDERED: Z GUARD REMEDY 2 OZ OINT TP PRN (14:30)
[2020-11-29] MEDS ORDERED: ACETAMINOPHEN 325 MG TABLET PO PRN (14:30)
--- NOTE | 2020-11-29 14:44 | NUR ---
BLOOD TINGED EMESIS (ABOUT 50 ML) NOTED. DR MARTI AND DR JACOBSON MADE AWARE.
--- NOTE | 2020-11-29 14:46 | NUR ---
RECEIVED AN ORDER FROM DR MARTI: ZOFRAN 4 MG IV ONCE. THE ORDER IS READ BACK, VERIFIED. NOTED AND CARRIED OUT.
[2020-11-29 14:49] LABS: BAND % (MANUAL) 1 % (0.0-5.0); LYMPHOCYTES % (MANUAL) 6 % (16-48); NEUTROPHILS % (MANUAL) 77 (42-76)
[2020-11-29 14:50] LABS: MONOCYTES % (MANUAL) 16 % (0-11.0)
--- NOTE | 2020-11-29 14:54 | NUR ---
MOTHER AT THE BEDSIDE
--- NOTE | 2020-11-29 14:57 | NUR ---
RECEIVED AN ORDER FROM NIKI GROVER: MIDLINE INSERTION. THE ORDER IS READ BACK, VERIFIED. NOTED AND CARRIED OUT.
[2020-11-29] MEDS ORDERED: ONDANSETRON HCL/PF 4 MG/2 ML VIAL IV ONE (15:00)
--- NOTE | 2020-11-29 15:35 | NUR ---
[facility] [place] BED 115-1
--- NOTE | 2020-11-29 15:56 | NUR ---
REPORT GIVEN TO NURSE MEGAN TELE/JOSELYN
--- NOTE | 2020-11-29 17:15 | NUR ---
Daphnie fish in ED - 11/29/20 at 1715 by JUSTICE THE PATIENT IS TAKEN TO CT, THEN TRANSFERED TO ROOM 254 IN STABLE CONDITION AND PER ACLS POLICY.
[2020-11-29 17:30] VITALS: BP 124/68
--- NOTE | 2020-11-29 17:33 | NUR ---
THE PATIENT IS TRANSFERED TO ASSIGNED ROOM IN STABLE CONDITION AND PER POLICY.
--- NOTE | 2020-11-29 17:35 | NUR ---
RN MS NOTES RECEIVED PT FROM E.R. STAFF VIA YANY, PT IS AWAKE, ALERT AND ORIENTED, ASSISTED TO BED, MADE COMFORTABLE, ROOM SET UP ORIENTATION PROVIDED TO PT, VERBALIZED UNDERSTANDING, WITH COMPLAINT OF PAIN 09/27, WITH 1 EPISODE OF COFFEE GROUND EMESIS, PAIN MEDS GIVEN, NAUSEA MEDS GIVEN, STARTED ON IV FLUIDS, PM MEDS GIVEN ORDERED, NEEDS ATTENDED.
[2020-11-29] MEDS: MORPHINE SULFATE INJ 2 MG/ML DISP.SYRIN IV PRN ×2 (17:54→22:01)
[2020-11-29] MEDS: ONDANSETRON HCL/PF 4 MG/2 ML VIAL IVP PRN (17:55)
[2020-11-29] MEDS: PANTOPRAZOLE 40 MG VIAL IV SCH ×2 (17:55→20:14)
[2020-11-29] MEDS: IV D5/ 0.9% NACL 1,000 ML IV PRN (17:57)
[2020-11-29] MEDS: SOD FERRIC GLUC 125 MG in IV NS 0.9% 100 ML IV SCH (18:38)
--- NOTE | 2020-11-29 19:00 | NUR ---
received RajatPer in her bed alert and orientated X3 Requesting Pain medication for the pain in her abd informed her she had the morphine at 6PM 1 hour ago she asked for the Zofran informed her she just had the Zofran at 1800 1 hour ago, to lay down and let the medication take affect moves about in the bed independently
[2020-11-29 22:58] LABS: BASOPHILS % (AUTO) 0.2 % (0.0-2.0); HEMATOCRIT 29 % (33-45); LYMPHOCYTES % (AUTO) 8.9 % (20.0-44.0); MEAN CORPUSCULAR HGB CONC 31 g/dl (31.0-36.0); MEAN CORPUSCULAR VOLUME 68 fL (82-100); MONOCYTES # (AUTO) 0.5 K/uL (0.1-1.30); MONOCYTES % (AUTO) 4.2 % (2.0-12.0); NEUTROPHILS # (AUTO) 9.5 K/uL (1.8-8.9); NEUTROPHILS % (AUTO) 86.7 % (43.0-81.0); PLATELET COUNT (AUTO) 305 K/uL (150-450); RED BLOOD CELL COUNT(AUTO) 4.31 MIL/uL (4.0-5.2)
[2020-11-30] MEDS: ONDANSETRON HCL/PF 4 MG/2 ML VIAL IVP PRN ×3 (00:29→18:02)
[2020-11-30] MEDS: MORPHINE SULFATE INJ 2 MG/ML DISP.SYRIN IV PRN ×2 (01:59→15:02)
[2020-11-30] MEDS: IV D5/ 0.9% NACL 1,000 ML IV PRN (05:24)
--- NOTE | 2020-11-30 05:44 | NUR ---
ENDING NOTES ABDMITTED FOR ABD PAIN RADIATING TO THE LEFT SIDE. MEDICATED x FOR PAIN WITH MORPHINE AND THIS WAS EFFECTIVE ZOFRAN GIVEN AT 2400 AND EFFECTIVE FOR HER NAUSEA. KEPT NPO ORDERED. ABD SOFT AND BOWEL SOUNDS AUDIBLE
[2020-11-30 06:23] LABS: BASOPHILS % (AUTO) 0.3 % (0.0-2.0); HEMATOCRIT 28 % (33-45); HEMOGLOBIN 8.5 g/dL (11.5-14.8); LYMPHOCYTES % (AUTO) 8.7 % (20.0-44.0); MEAN CORPUSCULAR HGB CONC 31 g/dl (31.0-36.0); MEAN CORPUSCULAR VOLUME 68 fL (82-100); MONOCYTES # (AUTO) 0.8 K/uL (0.1-1.30); MONOCYTES % (AUTO) 7.5 % (2.0-12.0); NEUTROPHILS # (AUTO) 9.4 K/uL (1.8-8.9); NEUTROPHILS % (AUTO) 83.5 % (43.0-81.0); PLATELET COUNT (AUTO) 288 K/uL (150-450); RED BLOOD CELL COUNT(AUTO) 4.02 MIL/uL (4.0-5.2); WHITE BLOOD COUNT (AUTO) 11.3 K/uL (4.3-11.0)
[2020-11-30 06:56] LABS: CALCIUM, SERUM 8.5 mg/dL (8.5-10.1); CREATININE 0.8 mg/dL (0.6-1.3); MAGNESIUM 1.9 mg/dL (1.8-2.4); PHOSPHORUS 2.6 mg/dL (2.5-4.9)
[2020-11-30 07:23] LABS: THYROID STIMULATING HORMONE 0.635 uIU/mL (0.358-3.74)
[2020-11-30 08:00] VITALS: BP 122/66
[2020-11-30] MEDS ORDERED: PIPERACILLIN /TAZOBACTAM 3.375 G in IV D5W 50 ML IV SCH (09:00)
--- NOTE | 2020-11-30 09:00 | NUR ---
RN NOTES PT SEEN BY DR. GROVER. AWAITING GI CONSULT BY DR. SANCHEZ TO DETERMINE TREATMENT PLAN. PT IV RUNNING D5NS @75ML/HR IN LFA MIDLINE. PT REMAINS NPO. NO EVIDENCE OF BLEEDING. ALL NEEDS ATTENDED AT THIS TIME.
[2020-11-30] MEDS: PANTOPRAZOLE 40 MG VIAL IV SCH ×2 (09:03→21:24)
[2020-11-30] MEDS: SOD FERRIC GLUC 125 MG in IV NS 0.9% 100 ML IV SCH (13:19)
--- NOTE | 2020-11-30 15:30 | NUR ---
RN NOTES PT COMPLAINING OF HUNGER AND BLOOD GLUCOSE LEVEL 89. PER MD ORDER OK TO GIVE 3 SIPS OF WATER AND 3 BITES OF JELLO.
--- NOTE | 2020-11-30 18:44 | NUR ---
RN NOTES PT AWAITING EGD PROCEDURE, WITH CONSENT SIGNED IN THE CHART. PT REFUSED BLOOD TRANSFUSION CONSENT. STAT BLOOD DRAW ORDERED PER SURGERY. PROCEDURE PLANNED FOR 1999. MEDICATED WITH ZOFRAN AT 1830 FOR COMPLAINTS OF NAUSEA. IV D5NS RUNNING AT 75ML/HR ON R FA 18G, LINE IS PATENT AND INFUSING WELL. SAFETY MEASURES IN PLACE WITH BED IN LOWEST LOCKED POSITION, CALL LIGHT WITHIN REACH, AND ALL NEEDS ATTENDED AT THIS TIME.
--- NOTE | 2020-11-30 19:00 | NUR ---
RN NOTE RECEIVED PATIENT IN BED ALERT ORIENTED X4 VERBALLY RESPONSIVE,NPO,ON ROOM AIR O2:98% AMBULATORY CONTINET TO BOWEL/BLADDER,IV SITE IS ON LEFT MIDLINE INTACT PATENT ON IV HYDRATION D5NS @ 75 CC/HR,SAFETY MEASURE IMPLEMENT,CALL LIGHT WITHIN REACH CONTINUE TO MONITOR
[2020-11-30] MEDS ORDERED: ANESTHESIA TRAY IN PYXIS 1 EA TRAY MC ONE (19:23)
--- NOTE | 2020-11-30 19:29 | NUR ---
RN NOTE PATIENT LEFT TO OR FOR EGD PROCEDURE
[2020-11-30] MEDS ORDERED: FAMOTIDINE/PF INJ 20 MG/2 ML VIAL IV ONE (19:48)
[2020-11-30] MEDS ORDERED: SUCCINYLCHOLINE CHLORIDE 20 MG/ML VIAL ONE (19:48)
[2020-11-30 20:00] VITALS: BP 118/75
[2020-11-30] MEDS ORDERED: ONDANSETRON HCL/PF 4 MG/2 ML VIAL ONE (20:33)
--- NOTE | 2020-11-30 21:10 | NUR ---
RN NOTE PATIENT RETURNED TO HER ROOM FORM OR EGD PROCEDURE IN STABLE CONDITION BP 126/79 HR 86 O2:99% ON ROOM AIR T 98.6 RR:18 WITH NEW ORDER CLEAR LIQUID DIET AND SUCRALFATE 10 ML.SAFETY MEASURE IMPLEMENT,CALL LIGHT WITHIN REACH,CONTINUE TO MONITOR.
[2020-11-30] MEDS: SUCRALFATE 1 G/10 ML UDC PO SCH (21:24)
[2020-12-01] MEDS: MORPHINE SULFATE INJ 2 MG/ML DISP.SYRIN IV PRN ×2 (00:15→08:21)
[2020-12-01] MEDS: IV D5/ 0.9% NACL 1,000 ML IV PRN (02:36)
[2020-12-01 04:00] VITALS: BP 102/56
--- NOTE | 2020-12-01 04:11 | NUR ---
RN NOTE PATIENT ACCIDENTLY PULLED OUT HER MIDLINE,CLEANED THE SITE AND STARTED A NEW IV LINE ON LEFT FOREARM #22 INTACT PATENT NO INFILTRATION NO SWELLING CONTINUE TO MONITOR
[2020-12-01 06:27] LABS: BASOPHILS # (AUTO) 0.1 K/uL (0.0-0.2); BASOPHILS % (AUTO) 0.4 % (0.0-2.0); EOSINOPHILS % (AUTO) 0.1 % (0.0-6.0); HEMATOCRIT 27 % (33-45); HEMOGLOBIN 8.2 g/dL (11.5-14.8); LYMPHOCYTES # (AUTO) 1.1 K/uL (0.8-4.8); LYMPHOCYTES % (AUTO) 7.8 % (20.0-44.0); MEAN CORPUSCULAR HGB CONC 30 g/dl (31.0-36.0); MEAN CORPUSCULAR VOLUME 69 fL (82-100); MONOCYTES # (AUTO) 0.9 K/uL (0.1-1.30); MONOCYTES % (AUTO) 6.4 % (2.0-12.0); NEUTROPHILS # (AUTO) 12.6 K/uL (1.8-8.9); NEUTROPHILS % (AUTO) 85.3 % (43.0-81.0); PLATELET COUNT (AUTO) 283 K/uL (150-450); RED BLOOD CELL COUNT(AUTO) 3.96 MIL/uL (4.0-5.2); WHITE BLOOD COUNT (AUTO) 14.7 K/uL (4.3-11.0)
--- NOTE | 2020-12-01 06:50 | NUR ---
RN NOTE PATIENT REMAINS ON ALERT ORIENTED X4 VERBALLY RESPONSIVE ON ROOM AIR NO SOB NOT ACUTE DISTRESS NOTED SHE IS ON CLEAR LIQUID DIET NO VOMITING NO NAUSEA NOTED ON IV HYDRATION NSD5 75 CC/HR IV SITE IS ON LEFT FOREARM INTACT PATENT,ALL DUE MEDS GIVEN MD ORDERED KEPT CALL LIGHT WITHIN REACH ALL NEEDS MET ENDORSE NEXT COMING SHIFT FOR CONTINUATION OF CARE.
[2020-12-01 07:14] LABS: CALCIUM, SERUM 8.2 mg/dL (8.5-10.1); CREATININE 0.9 mg/dL (0.6-1.3); POTASSIUM 3.4 mmol/L (3.5-5.1)
--- NOTE | 2020-12-01 07:40 | NUR ---
RN NOTE PATIENT IS ON ROOM AIR WITH NO SIGNS OF LABORED BREATHING. PATIENT IS AOX4. PATIENT IS IN BED WITH HOB AT [facility]. LFA 22 IS PATENT AND INTACT. BED IS LOCKED IN THE LOWEST POSITION, 3 GUARD RAILS RAISED, CALL JOH[place]ON WITHIN REACH, AND ALL HOSPITAL SAFETY PRECAUTIONS ARE BEING FOLLOWED. WILL CONTINUE TO MONITOR THROUGHOUT SHIFT.
[2020-12-01] MEDS: SUCRALFATE 1 G/10 ML UDC PO SCH ×2 (08:17→11:00)
[2020-12-01] MEDS: PANTOPRAZOLE 40 MG VIAL IV SCH (08:17)
[2020-12-01] MEDS ORDERED: TEMA30CA5 PO (08:39)
[2020-12-01] MEDS ORDERED: SUCR1TAB PO (08:39)
[2020-12-01] MEDS ORDERED: POTASSIUM CHLORIDE 20 MEQ POWDER PACKET PO SCH (09:30)
[2020-12-01] MEDS: ONDANSETRON HCL/PF 4 MG/2 ML VIAL IVP PRN (10:54)
[2020-12-01] MEDS: SOD FERRIC GLUC 125 MG in IV NS 0.9% 100 ML IV SCH (13:37)
--- NOTE | 2020-12-01 14:29 | NUR ---
RN NOTE PATIENT DISCHARGED WITH MOTHER. DISCHARGE INSTRUCTION PROVIDED USING TEACHBACK METHOD.
== END 2020-12-01 15:00 | disposition home or self-care (01) | DRG 242 ==
LOC: ER 12:57 → MEDSG1 16:10
PROVIDERS: ADMIT Nurse Practitioner Acute Care; ATTEND Nurse Practitioner Acute Care
PROC: 05H633Z Insertion of Infusion Device into Left Subclavian Vein, Percutaneous Approach (ICD-10-PCS; principal; 2020-11-29)
PROC: B547ZZA Ultrasonography of Left Subclavian Vein, Guidance (ICD-10-PCS; 2020-11-29)
PROC: 0W3P8ZZ Control Bleeding in Gastrointestinal Tract, Via Natural or Artificial Opening Endoscopic (ICD-10-PCS; 2020-11-30)
DX: K22.11 Ulcer of esophagus with bleeding (principal); D50.9 Iron deficiency anemia, unspecified; Z20.822 Contact with and (suspected) exposure to COVID-19; Z83.3 Family history of diabetes mellitus; G35 Multiple sclerosis; K29.70 Gastritis, unspecified, without bleeding; Z79.899 Other long term (current) drug therapy; Z82.3 Family history of stroke
CPT/HCPCS: 36415; 71045-TC; 80048-TC; 80061-TC; 80076-TC; 81001; 83540-TC; 83605-TC; 83690-TC; 83735-TC; 84100-TC; 84443-TC; 84703-TC; 85025-TC; 85730-TC; 87040-TC; 87086-TC; C9113; C9803; G0378; J0330; J2270; J2405; J2543; J2704; J2765; J2916; J3490; J7030; J7042; J7060